=== PATIENT | female | born 1995 | race Caucasian/White ===

== ENCOUNTER 2020-07-12 12:05 | Emergency (ER) | payer OTHER, SELFPAY ==
--- NOTE | ~2020-07-12 | XR_ITS ---
EXAMINATION: XR SHOULDER, RIGHT CLINICAL INFORMATION: Pain. COMPARISON: None TECHNIQUE: AP external rotation, Grashey, scapular Y, and axillary views of the right shoulder. FINDINGS: The bones and soft tissues are normal. No fracture. Glenohumeral and acromioclavicular alignment is anatomic with normal joint space. No abnormal soft tissue calcifications. XR/XR shoulder RT min 2V IMPRESSION: Unremarkable right shoulder exam.
[2020-07-12 12:22] VITALS: BP 152/110; PULSE 108; RESP 18; TEMP 37.2; O2SAT 96; BMI 46.9
--- NOTE | 2020-07-12 12:58 | ED.EXTPRO ---
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 and she felt a pop in her posterior shoulder area and now has pain with movement, she also complains of some tingling in her fingertips but no weakness or numbness, no neck or back pain Related Data Previous Rx's Medication Instructions Recorded ibuprofen 600 mg PO Q6H PRN #20 tab 07/12/20 Allergies Allergy/AdvReac Type Severity Reaction Status Date / Time amoxicillin Allergy Hives Verified 07/12/20 12:21 Review of Systems Review of Systems: Positive for right shoulder pain and tingling in the right arm No dizziness no fainting no feeling faint no headache no neck pain no numbness or weakness no chest pain no back pain no changes to bowel or bladder Yes all other systems are reviewed and are negative PMFSH Past Medical History Source: nursing notes reviewed Physical Exam Vital Signs: Vital Signs: Last Vital Signs Temp 98.9 F 07/12/20 12:22 Pulse 108 H 07/12/20 12:22 Resp 18 07/12/20 12:22 BP 152/110 H 07/12/20 12:22 Pulse Ox 96 07/12/20 12:22 Body Mass Index 46.9 General appearance no acute distress Head is normocephalic atraumatic The neck is supple with no tenderness of the neck or trapezius muscles The chest no respiratory distress nontender Extremities the right shoulder had restricted range of motion due to pain there is no redness or swelling, no deformity, there was tenderness to both anterior and deltoid area of the shoulder as well as some posterior tenderness, skin was normal and neurovascular intact distal Other extremities normal Back full range of motion 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 and symmetrical sensation was intact and symmetrical in both hands Course Course Course Narrative: Elevated blood pressure was noted and patient is advised to get a home blood pressure cuff keep a record twice a day for 1-2 weeks and follow with primary doctor for evaluation for possible hypertension X-ray of the right shoulder was normal and despite her tingling sensation motor and sensation were fully intact, there were no findings of any tenderness or restricted range of motion in the neck and exam is consistent with a right shoulder injury Discharge Plan Discharge Clinical Impression: Sprain of right shoulder Patient Disposition: Home, Self-Care Additional Instructions: X-ray did not show any bony injury or dislocation Injury is most likely a muscle strain either in the upper back or in the posterior shoulder Follow with work connection for further evaluation and physical therapy if needed and referral to orthopedist if needed Return any time any concerns Prescriptions: New ibuprofen 600 mg tablet 600 mg PO Q6H PRN (Reason: pain) Qty: 20 RF: 0 Referrals: Doug Ruiz MD [Physician] - 2 days (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
== END 2020-07-12 13:09 | disposition home or self-care (01) ==
PROVIDERS: Emergency Provider Emergency Medicine
DX: S43.401A Unspecified sprain of right shoulder joint, initial encounter (principal); M25.511 Pain in right shoulder; X50.0XXA Overexertion from strenuous movement or load, initial encounter; X50.9XXA Other and unspecified overexertion or strenuous movements or postures, initial encounter; Y93.F2 Activity, caregiving, lifting; Y92.239 Unspecified place in hospital as the place of occurrence of the external cause; Y99.0 Civilian activity done for income or pay
CPT/HCPCS: 73030; 99283

== ENCOUNTER → 2020-07-14 12:30 | Outpatient (BNVA) | payer OTHER, SELFPAY | PROVIDERS: Visit Provider Internal Medicine | DX: S46.811A Strain of other muscles, fascia and tendons at shoulder and upper arm level, right arm, initial encounter (principal); X50.0XXA Overexertion from strenuous movement or load, initial encounter | CPT/HCPCS: 99202 ==

== ENCOUNTER 2021-02-12 19:18 | Emergency (ER) | payer OTHER, SELFPAY ==
--- NOTE | ~2021-02-12 | XR_ITS ---
EXAMINATION: XR ANKLE, LEFT CLINICAL INFORMATION: Ankle pain COMPARISON: None TECHNIQUE: AP, lateral, and mortise views of the left ankle. FINDINGS: Medial and lateral ankle soft tissue swelling. No fracture or dislocation seen. No widening of the ankle mortise. The talar dome is intact. XR/XR ankle LT min 3V IMPRESSION: Medial and lateral ankle soft tissue swelling but no acute osseous abnormality.
[2021-02-12 19:46] VITALS: RESP 18; O2SAT 96; BMI 44.6
--- NOTE | 2021-02-12 19:51 | ED_ITS ---
HPI - Extremity Injury (Lower) General Chief Complaint: Extremity Injury, Lower Stated Complaint: ankle inj at work Time Seen by Provider: 02/12/21 19:30 Source: patient Mode of arrival: ambulatory Limitations: no limitations History of Present Illness HPI Narrative: 25-year-old female presents to the emergency department with left ankle pain status post rolling her ankle at work. 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 She immediately started experiencing pain and swelling to the ankle. She reports pain with ambulation, better at rest. No previous surgeries to that ankle. Patient has no other complaints. She did not fall or hit her head or lose consciousness. MD complaint: ankle injury (Left) Onset (ago): hour(s) (1) Type of Injury: inversion Place: work Severity: moderate Severity scale (1-10): 5 Relieving factors: immobilization and rest Exacerbating factors: weight bearing and palpation Context: other (rolled ankle ) Associated symptoms: swelling Other symptoms: none Related Data Previous Rx's Medication Instructions Recorded ibuprofen 600 mg tablet 600 mg PO Q6H PRN #20 tab 07/12/20 Allergies Allergy/AdvReac Type Severity Reaction Status Date / Time amoxicillin Allergy Hives Verified 02/12/21 19:46 Review of Systems Review of Systems: Constitutional : No Weight loss, No Fever, No Chills, No Fatigue, No Malaise Cardiovascular : No Chest Pain, No SOB, No Dyspnea on Exertion, No Orthopnea, No Edema, No Palpitations Respiratory : No Cough, No Sputum, No Wheezing Gastrointestinal : No Nausea, No Vomiting, No Diarrhea, No Constipation, No abdominal Pain, No Hematochezia, No Melena Musculoskeletal : + joint pain, No Myalgias, + Joint Swelling Skin : No Skin Lesions, No rash Neuro : No Weakness, No Numbness, No Dizziness, No Headache All other systems reviewed and are negative Yes all other systems are reviewed and are negative [facility] Past Medical History Attestation statement: The following information was validated with the patient. Source: old records reviewed and nursing notes reviewed Social History Social History Advance Directives: No Advance Directives Information Provided: No Physical Exam Vital Signs: Vital Signs: Last Vital Signs Temp 97 F 02/12/21 20:04 Pulse 114 H 02/12/21 20:04 Resp 20 01/02/22 20:04 BP 140/90 H 02/12/21 20:04 Pulse Ox 98 02/12/21 20:04 BMI result Body Mass Index 44.6 VSS Appearance: Alert.? Oriented X3.? No acute distress.? Head: Normocephalic, atraumatic, no step-offs or deformities Eyes: Pupils equal, round and reactive to light.? ENT: Pharynx normal.? Neck: Normal inspection.? Neck supple.? CVS: Normal heart rate and rhythm.? Pulses normal.? Respiratory: No respiratory distress.? Breath sounds normal.? Abdomen: Soft and nontender.? Skin: Skin warm and dry.? Normal skin color.? Normal skin turgor.? Extremities:? No calf ttp. 5/5 strength to bilateral upper and lower extremities +pain with ROM of left ankle + swelling to left ankle no overlying ecchymosis + pain with palpation over medial and lateral malleolous. Right side normal. + limping, unable to bear weight on left ankle. No evident ligament or tendon involvement. No foot drop. Sensory and motor intact to b/l lower extremities. Back: No midline tenderness, no C-spine tenderness, full range of motion, no CVA tenderness bilaterally Neuro: Oriented X 3.? No motor deficit.? No sensory deficit. Course Reevaluation(s) Reevaluation #1: X-ray does not show any acute fractures. show soft tissue swelling. This is likely a ankle sprain/strain. No evident ligament or tendon involvement. She was given air cast, and crutches. This time I feel comfortable with discharge home. I have educated her on RICE. I will have her follow-up w [facility] orthopedics if symptoms do not improve in 2-3 weeks. I have advised her to follow-up with her PCP and the work connection. Comfortable with discharge home Time: 19:56 MDM - Extremity Injury (Lower) [facility] Narrative Medical decision making narrative: 1956 25-year-old female presents the emergency department with left ankle pain status post rolling her ankle at work just prior to her arrival. Reports pain and swelling. Physical examination significant for No calf ttp. 5/5 strength to bilateral upper and lower extremities. There is pain with ROM of left ankle, however full ROM. There is swelling to left ankle with no overlying ecchymosis. Also pain with palpation over left medial and lateral malleolous. Right side normal. Upon ambulation patient is limping, unable to bear weight on left ankle. No evident ligament or tendon involvement. No foot drop. Sensory and motor intact to b/l lower extremities. RRR. Lungs clear.Abdomen soft nontender nondistended. Plan at this time is to obtain x-ray, apply an Aircast and educate on crutches. Medical Records Attestation: I reviewed the patient's medical records. Lab Data Attestation: I reviewed the patient's lab results. Imaging Data left ankle : Attestation: I personally reviewed and interpreted this imaging study as follows: Radiologist's impression: XR/XR ankle LT min 3V IMPRESSION: Medial and lateral ankle soft tissue swelling but no acute osseous abnormality. Critical Care Time Critical Care Time Critical Care Time: No Discharge Plan Discharge Clinical Impression: Ankle sprain and strain, Work related injury Patient Disposition: Home, Self-Care Instructions: Ankle Sprain (ED), Crutch Instructions (ED), R.I.C.E. Treatment (ED), Ice Pack Application (ED), Ankle Strain (ED) Additional Instructions: Take your medications as prescribed. If you were prescribed antibiotics today, it is important that you take your medication to their entirety, do not skip any doses, do not finish them early. Follow-up with your primary care provider this week. Follow-up with the work connection as this was a work related injury. You can take ibuprofen every 6 hours, Tylenol every 4 as needed for pain and swelling. Return to the emergency department with new or worsening symptoms. In case of emergency call 911 Your x-ray did not show any acute fractures. However, I cannot rule out ligament or tendon involvement, this requires an MRI . There is no evident ligament or tendon involvement. Please follow-up with orthopedics if symptoms do not improve in 2-3 weeks. Use your crutches as istructed. Wear the aircast, take the air cast off at night. Prescriptions: No Action ibuprofen 600 mg tablet 600 mg PO Q6H PRN (Reason: pain) Qty: 20 RF: 0 Referrals: Cedrick Amor MD [Physician] - 2 weeks Stand Alone Forms: Work/School Release
[2021-02-12 20:04] VITALS: BP 140/90; PULSE 114; RESP 20; TEMP 36.1; O2SAT 98
== END 2021-02-12 20:30 | disposition home or self-care (01) ==
PROVIDERS: Emergency Provider Internal Medicine
DX: S93.402A Sprain of unspecified ligament of left ankle, initial encounter (principal); S96.912A Strain of unspecified muscle and tendon at ankle and foot level, left foot, initial encounter; X50.1XXA Overexertion from prolonged static or awkward postures, initial encounter; Y93.9 Activity, unspecified; Y92.89 Other specified places as the place of occurrence of the external cause; Y99.0 Civilian activity done for income or pay
CPT/HCPCS: 73610; 99283